=== PATIENT | male | born 1975 | race Caucasian/White ===

== ENCOUNTER → 2022-11-16 | Outpatient (CLI) | payer OTHER | LOC: M PLAIMG 13:21 | PROVIDERS: ATTEND Nurse Practitioner Family | DX: D69.3 Immune thrombocytopenic purpura (principal); D64.9 Anemia, unspecified ==

== ENCOUNTER → 2022-11-26 | Outpatient (CLI) | payer OTHER | LOC: M PLAIMG 10:00 | PROVIDERS: ATTEND Nurse Practitioner Family | DX: M25.529 Pain in unspecified elbow (principal) ==